=== PATIENT | female | born 1965 | race Caucasian/White ===

== ENCOUNTER → 2017-07-28 | Outpatient (CLI) | payer MEDICARE, OTHER ==
[~2017-07-28] MED LIST: ASPIRIN325; B12INJ IM; FOLIC ACID 40400 MCG PO; GLUCOPHAGE XR500 MG PO; HYDROCODON-ACE1 EAC7; HYDROCODON-ACE1 EAC7 PO; LISINOPRIL10 MG PO; MED FOR GERD; NOHOMEMEDICATIONS; NORCO 5-325 TA1 EACH PO; PAMELOR25 MG; PERCOCET 5-3251 EACH PO; SILVADENE20 GM TP; TRAMADOL 50 MG50 MG PO; UNICOMPLEX M TA1 TA1; VITAMIN D3400 UNIT PO; ZANTAC 7575 MG; ZOCOR 10 MG TAB10 MG PO
[2017-07-28 12:59] LABS: CREATININE 0.7 mg/dL (0.6-1.3)
== END ==
LOC: M.CT 12:28 → M.LAB 13:00 → M.CT 14:00
PROVIDERS: Family Medicine
DX: K76.0 Fatty (change of) liver, not elsewhere classified (principal); J98.11 Atelectasis; Z90.49 Acquired absence of other specified parts of digestive tract; Z90.710 Acquired absence of both cervix and uterus

== ENCOUNTER 2018-06-16 10:57 | Emergency (ER) | payer MEDICARE ==
[~2018-06-16] VITALS: Ht 149.9 cm; Wt 76.2 kg
[~2018-06-16 10:57] MED LIST changes: -ZANTAC 7575 MG; +ZANTAC 7575 MG PO
[2018-06-16] MEDS ORDERED: SENNA8.6 MG PO (11:12)
[2018-06-16] MEDS ORDERED: OMEPRAZOLE40 MG PO (11:12)
[2018-06-16] MEDS ORDERED: VITAMIN B-12500 MCG PO (11:13)
[2018-06-16] MEDS ORDERED: PROBIOTIC1 EAC1 PO (11:14)
[2018-06-16] MEDS ORDERED: NORTRIPTYLINE H25 M3 PO (11:14)
[2018-06-16] MEDS ORDERED: NORCO 5-325 TA1 EACH PO (12:40)
[2018-06-16] MEDS ORDERED: ZOFRAN ODT4 MG PO (12:54)
[2018-06-16 13:01] VITALS: BP 153/62
== END 2018-06-16 13:03 | disposition home or self-care (01) ==
LOC: M.ERS 10:57
DX: S50.01XA Contusion of right elbow, initial encounter (principal); S80.02XA Contusion of left knee, initial encounter; I10 Essential (primary) hypertension; G47.30 Sleep apnea, unspecified; Z91.030 Bee allergy status; Z90.49 Acquired absence of other specified parts of digestive tract; Z90.710 Acquired absence of both cervix and uterus; Z88.2 Allergy status to sulfonamides; Z88.5 Allergy status to narcotic agent; W01.0XXA Fall on same level from slipping, tripping and stumbling without subsequent striking against object, initial encounter; Y93.89 Activity, other specified; Y92.89 Other specified places as the place of occurrence of the external cause; Y99.8 Other external cause status

== ENCOUNTER 2018-11-27 10:20 | Emergency (ER) | payer MEDICARE, OTHER ==
[~2018-11-27] VITALS: Ht 149.9 cm; Wt 74.4 kg
[~2018-11-27 10:20] MED LIST changes: +NORTRIPTYLINE H25 M3 PO; +OMEPRAZOLE40 MG PO; +PROBIOTIC1 EAC1 PO; +SENNA8.6 MG PO; +VITAMIN B-12500 MCG PO; +ZOFRAN ODT4 MG PO
[2018-11-27 11:07] LABS: ABSOLUTE BASOPHILS 0.1 thou/uL (0.0-0.2); ABSOLUTE EOSINOPHILS 0.4 thou/uL (0.0-0.7); ABSOLUTE LYMPHOCYTES 1.8 thou/uL (0.8-5.3); ABSOLUTE MONOCYTES 0.4 thou/uL (0.0-1.2); ABSOLUTE NEUTROPHILS 3.5 thou/uL (1.6-8.1); EOSINOPHILS 5.8 %; HEMATOCRIT 34.8 % (37.0-47.0); HEMOGLOBIN 11.9 gm/dL (12.0-15.0); LYMPHOCYTES 28.9 %; MCH 30.6 pg (26.0-34.0); MCHC 34.1 g/dL (28.0-37.0); MCV 89.8 fL (80.0-100.0); MONOCYTES 7.1 %; MPV 8.1 fl. (7.2-11.1); NUCLEATED RBCS 0 /100WBC; PLATELET COUNT* 268 thou/uL (150-400); POLYS 57.2 %; RBC 3.88 mil/uL (4.20-5.00); RDW-CV 13.9 % (10.5-14.5); WBC 6.1 thou/uL (4.0-11.0)
[2018-11-27 11:15] LABS: URINE BILIRUBIN NEGATIVE (Negative); URINE BLOOD NEGATIVE (Negative); URINE CLARITY CLEAR; URINE COLOR YELLOW; URINE GLUCOSE-RANDOM NEGATIVE (Negative); URINE KETONES NEGATIVE (Negative); URINE NITRITE-REFLEX NEGATIVE (Negative); URINE PROTEIN NEGATIVE (Negative); URINE SPECIFIC GRAVITY 1.015 (1.005-1.030); URINE UROBILINOGEN 0.2 E.U./dl (0.2-1.0)
[2018-11-27 11:17] LABS: URINE LEUKOCYTES-REFLEX 2+ (Negative)
[2018-11-27 11:31] LABS: ANION GAP 13 mmol/L (7-16); BUN 11 mg/dL (7-18); CALCIUM 8.8 mg/dL (8.5-10.1); CHLORIDE 104 mmol/L (98-107); CO2 26 mmol/L (21-32); CREATININE 0.8 mg/dL (0.6-1.3); GLUCOSE 106 mg/dL (70-99); POTASSIUM 4.1 mmol/L (3.5-5.1); SODIUM 143 mmol/L (136-145)
[2018-11-27 11:32] LABS: SQUAMOUS 4-10 Moderate /LPF (0-3); URINE RBC 0-2 Rare /HPF (0-2); URINE WBC-REFLEX 6-15 Few /HPF (0-5)
[2018-11-27 11:32] LABS: AMP/METHAMP Negative (Negative); BARBITURATES Negative (Negative); BENZODIAZEPINES Negative (Negative); COCAINE Negative (Negative); METHADONE Negative (Negative); OPIATES Negative (Negative); PCP Negative (Negative); THC Negative (Negative)
[2018-11-27 11:33] LABS: BACTERIA-REFLEX 1-9 Few /HPF (None Seen); CASTS None Seen /LPF (None Seen); CRYSTALS None Seen /LPF (None Seen); MUCUS None Seen strn/LPF (None Seen)
[2018-11-27 11:44] LABS: ALBUMIN 3.6 g/dL (3.4-5.0); ALKALINE PHOSPHATASE 107 U/L (46-116); SGOT 51 U/L (15-37); SGPT 114 U/L (30-65); TOTAL BILIRUBIN 0.2 mg/dL (<0.1-1.0); TOTAL PROTEIN 7.4 g/dL (6.4-8.2); TROPONIN-I LEVEL <0.06 ng/mL (<0.06)
[2018-11-27] MEDS ORDERED: MACRODANTIN100 MG PO (12:45)
[2018-11-27 12:50] VITALS: BP 129/60
--- NOTE | 2018-11-27 15:45 | EKG ---
[place] [address] ELECTROCARDIOGRAM REPORT Name: GURPREET REYES Room: [facility] [place]#: [id number] Admission: 11/27/18 Attend Phys: Discharge: 11/27/18 Date of : 65 Report #: [id number] THIS REPORT FOR: //name// [facility] ED Test Date: 2018-11-27 Test Time: 10:36:30 Pat Name: GURPREET REYES Department: Room: Gender: F [employer]: [place] : 1965 Requested By: Curtis Perez Order Number: [id number] MD: Chun Blair Measurements Intervals [place] Rate: 89 P: 61 MN: 135 QRS: 0 QRSD: 76 T: -1 QT: 367 QTc: 447 Interpretive Statements Sinus rhythm No previous ECG available for comparison Electronically Signed On 11-27-2018 15:45:16 CDT by Chun Blair [email or web address] <ELECTRONICALLY SIGNED> By: Chun Blair MD, [facility] 11/27/18 1545 1036 1036 Chun Blair MD, FACC /EPI
== END 2018-11-27 13:04 | disposition home or self-care (01) ==
LOC: M.ERS 10:20
PROVIDERS: Nurse Practitioner Family
DX: N39.0 Urinary tract infection, site not specified (principal); I10 Essential (primary) hypertension; G47.30 Sleep apnea, unspecified; Z90.49 Acquired absence of other specified parts of digestive tract; Z90.710 Acquired absence of both cervix and uterus; Z91.030 Bee allergy status; Z88.2 Allergy status to sulfonamides; Z88.5 Allergy status to narcotic agent; Z79.899 Other long term (current) drug therapy

== ENCOUNTER → 2021-02-12 | Outpatient (CLI) | payer MEDICARE, OTHER ==
[~2021-02-12] MED LIST changes: +MACRODANTIN100 MG PO
== END ==
LOC: M.ULTRA 13:00
PROVIDERS: ATTEND Nurse Practitioner Family
DX: R53.1 Weakness (principal); R20.2 Paresthesia of skin; I73.9 Peripheral vascular disease, unspecified